=== PATIENT | female | born 1950 | race Caucasian/White ===

== ENCOUNTER 2025-07-06 13:00 | Outpatient (RCR) | payer MEDICARE, SELFPAY | END 2025-07-06 13:55 | disposition home or self-care (01) | PROVIDERS: Referring Provider Family Medicine; Visit Provider Physician Assistant | DX: S52.125D Nondisplaced fracture of head of left radius, subsequent encounter for closed fracture with routine healing (principal); R29.6 Repeated falls; M25.522 Pain in left elbow; H81.11 Benign paroxysmal vertigo, right ear; Z51.89 Encounter for other specified aftercare | CPT/HCPCS: 97110; 97140; 97161; 97165; 97530; 97535; X5282 ==